=== PATIENT | female | born 1995 | race Two or more races ===

== ENCOUNTER 2016-12-06 15:03 | Inpatient (IN) | payer OTHER ==
[~2016-12-06] VITALS: Ht 171.4 cm; Wt 75.5 kg
[~2016-12-06 15:03] MED LIST: AMOX1TAB64 PO; PREN1TAB56 PO
[2016-12-06 15:39] LABS: ASPARTATE AMINO TRANSFERASE 18 U/L (15-37); BLOOD UREA NITROGEN 11 mg/dL (7-18)
[2016-12-06 16:34] LABS: DIFF TOTAL CELLS COUNTED 100 CELL DIFF; HEMATOCRIT 27.3 % (34.6-47.8); WHITE BLOOD COUNT 9.8 x10^3/uL (3.4-10)
[2016-12-06 16:36] LABS: VERIFY COUNTS? YES
[2016-12-06 16:37] LABS: ANISOCYTOSIS 2+; HYPOCHROMIA 2+; MICROCYTOSIS 2+; OVALOCYTES 1+; POLYCHROMASIA 1+
[2016-12-06] MEDS ORDERED: BETAMETHASONE 6 MG/ML, 5ML IM ONE (18:15)
[2016-12-06] MEDS ORDERED: SODIUM CHLORIDE FLUSH 10ML SYR IVF PRN (18:30)
[2016-12-06] MEDS: BETAMETHASONE 6 MG/ML, 5ML IM SCH (18:30)
[2016-12-06] MEDS ORDERED: LABETALOL 100 MG TABLET ONE (23:06)
[2016-12-07 05:40] LABS: HEMATOCRIT 26.6 % (34.6-47.8); WHITE BLOOD COUNT 10.4 x10^3/uL (3.4-10)
[2016-12-07 05:47] LABS: BLOOD UREA NITROGEN 12 mg/dL (7-18)
[2016-12-07] MEDS ORDERED: LABETALOL 100 MG TABLET PO SCH (06:00)
[2016-12-07 06:12] LABS: ASPARTATE AMINO TRANSFERASE 18 U/L (15-37); TOTAL IRON BINDING CAPACITY 454 mcg/dL (250-450)
[2016-12-07 06:17] LABS: DIFF TOTAL CELLS COUNTED 100 CELL DIFF
[2016-12-07 06:19] LABS: VERIFY COUNTS? YES
[2016-12-07 06:20] LABS: ANISOCYTOSIS 2+; HYPOCHROMIA 1+; MICROCYTOSIS 2+; POLYCHROMASIA 1+
[2016-12-07 06:21] LABS: OVALOCYTES 1+
[2016-12-07 06:22] LABS: LARGE PLATELETS 1+
[2016-12-07] MEDS ORDERED: LABETALOL 100 MG TABLET ONE ×2 (08:54→20:22)
[2016-12-07] MEDS: LABETALOL 100 MG TABLET PO SCH ×2 (09:00→20:25)
[2016-12-07] MEDS: SODIUM CHLORIDE FLUSH 10ML SYR IVF SCH ×2 (09:01→18:00)
[2016-12-07] MEDS: BETAMETHASONE 6 MG/ML, 5ML IM SCH (18:22)
[2016-12-08] MEDS ORDERED: LABETALOL 100 MG TABLET ONE ×2 (09:26→20:55)
[2016-12-08] MEDS ORDERED: PRENATAL VIT/IRON/FA 1 EACH TABLET ONE (09:26)
[2016-12-08] MEDS: PRENATAL VIT/IRON/FA 1 EACH TABLET PO SCH (09:29)
[2016-12-08] MEDS: LABETALOL 100 MG TABLET PO SCH ×2 (09:29→20:58)
[2016-12-08] MEDS ORDERED: FERROUS GLUCONATE 324 MG TABLET PO SCH (17:00)
[2016-12-08] MEDS ORDERED: DOCUSATE 100 MG CAPSULE ONE (18:37)
[2016-12-08] MEDS: DOCUSATE 100 MG CAPSULE PO PRN (18:40)
[2016-12-08] MEDS ORDERED: EPINEPHRINE 1 MG/ML, 1ML SQ PRN (20:00)
[2016-12-08] MEDS ORDERED: IRON DEXTRAN COMPLEX 25 MG in SODIUM CHLORIDE 0.9% 50 ML IV ONE (20:00)
[2016-12-08] MEDS ORDERED: IRON DEXTRAN IV PER PHARMACY IV SCH (20:00)
[2016-12-08] MEDS ORDERED: IRON SUCROSE COMPLEX 100MG/5ML IV SCH (21:00)
[2016-12-08] MEDS: SODIUM CHLORIDE FLUSH 10ML SYR IVF SCH (21:00)
[2016-12-09 08:00] VITALS: BP 166/85
[2016-12-09] MEDS: IRON SUCROSE COMPLEX 100MG/5ML IV SCH (08:05)
[2016-12-09] MEDS: SODIUM CHLORIDE FLUSH 10ML SYR IVF SCH ×2 (08:05→08:06)
[2016-12-09] MEDS ORDERED: LABETALOL 100 MG TABLET ONE ×2 (08:46→20:03)
[2016-12-09] MEDS ORDERED: PRENATAL VIT/IRON/FA 1 EACH TABLET ONE (08:46)
[2016-12-09] MEDS ORDERED: DOCUSATE 100 MG CAPSULE ONE (08:47)
[2016-12-09] MEDS: LABETALOL 100 MG TABLET PO SCH (08:48)
[2016-12-09] MEDS: PRENATAL VIT/IRON/FA 1 EACH TABLET PO SCH (08:48)
[2016-12-09] MEDS: DOCUSATE 100 MG CAPSULE PO PRN (08:49)
[2016-12-09] MEDS ORDERED: IRON DEXTRAN COMPLEX 25 MG in SODIUM CHLORIDE 0.9% 50 ML IV ONE (09:00)
[2016-12-09] MEDS ORDERED: IRON DEXTRAN COMPLEX 1,700 MG in SODIUM CHLORIDE 0.9% 250 ML IV ONE (10:00)
[2016-12-09 10:07] LABS: DILUTE PROTHROMBIN TIME (DPT) 36.3 sec (0.0-55.0); DILUTE RUSSELL'S VIPER VENOM 32.2 sec (0.0-47.0); LUPUS REFLEX INTERPRETATION Comment: (.); PTT-LA 34.4 sec (0.0-51.9)
[2016-12-09 11:38] LABS: HGB A 98.2 % (94.0-98.0); HGB A2 1.8 % (0.7-3.1)
[2016-12-09 12:07] LABS: BETA-2 GLYCOPROTEIN I IGA <9 (0-25)
[2016-12-09 19:56] VITALS: BP 165/92
[2016-12-09] MEDS ORDERED: LABETALOL 100 MG TABLET PO SCH (21:00)
[2016-12-09 23:39] VITALS: BP 118/72
[2016-12-10] MEDS ORDERED: LABETALOL 100 MG TABLET ONE ×3 (04:14→20:17)
[2016-12-10] MEDS: SODIUM CHLORIDE FLUSH 10ML SYR IVF SCH ×2 (04:20→09:00)
[2016-12-10] MEDS: LABETALOL 100 MG TABLET PO SCH ×3 (04:20→20:21)
[2016-12-10 05:03] VITALS: BP 118/75
[2016-12-10] MEDS ORDERED: LABETALOL 100 MG TABLET PO SCH (06:00)
[2016-12-10 06:51] LABS: BLOOD UREA NITROGEN 11 mg/dL (7-18)
[2016-12-10 06:52] LABS: HEMATOCRIT 26.1 % (34.6-47.8); HEMOGLOBIN 7.7 g/dL (11.7-16.4); WHITE BLOOD COUNT 13.7 x10^3/uL (3.4-10)
[2016-12-10 06:55] LABS: ASPARTATE AMINO TRANSFERASE 19 U/L (15-37)
[2016-12-10 07:28] LABS: ANISOCYTOSIS 1+; HYPOCHROMIA 1+; MICROCYTOSIS 3+; OVALOCYTES 1+; POIKILOCYTOSIS 1+
[2016-12-10 08:00] VITALS: BP 141/88
[2016-12-10] MEDS: PRENATAL VIT/IRON/FA 1 EACH TABLET PO SCH (09:00)
[2016-12-10 20:21] VITALS: BP 138/84
[2016-12-11] VITALS: BP 133/77
[2016-12-11] MEDS ORDERED: LABETALOL 100 MG TABLET ONE ×3 (04:09→20:28)
[2016-12-11] MEDS: LABETALOL 100 MG TABLET PO SCH ×3 (04:11→20:30)
[2016-12-11 04:14] VITALS: BP 145/94
[2016-12-11] MEDS: SODIUM CHLORIDE FLUSH 10ML SYR IVF SCH ×3 (04:14→20:31)
[2016-12-11] MEDS: PRENATAL VIT/IRON/FA 1 EACH TABLET PO SCH (09:00)
[2016-12-11 09:30] VITALS: BP 120/79
[2016-12-11 17:05] VITALS: BP 158/94
[2016-12-11 19:15] VITALS: BP 136/80
[2016-12-12] MEDS ORDERED: LABETALOL 100 MG TABLET ONE ×3 (04:48→20:18)
[2016-12-12] MEDS: LABETALOL 100 MG TABLET PO SCH ×3 (04:50→20:39)
[2016-12-12 05:57] LABS: BLOOD UREA NITROGEN 9 mg/dL (7-18)
[2016-12-12 06:10] LABS: HEMATOCRIT 26.1 % (34.6-47.8); HEMOGLOBIN 7.8 g/dL (11.7-16.4); WHITE BLOOD COUNT 11.7 x10^3/uL (3.4-10)
[2016-12-12 06:18] LABS: ASPARTATE AMINO TRANSFERASE 23 U/L (15-37)
[2016-12-12 07:19] LABS: ANISOCYTOSIS 2+; MICROCYTOSIS 2+
[2016-12-12 07:20] LABS: HYPOCHROMIA 1+; OVALOCYTES 1+; POIKILOCYTOSIS 1+; POLYCHROMASIA 1+
[2016-12-12] MEDS: IRON SUCROSE COMPLEX 100MG/5ML IV SCH (08:14)
[2016-12-12] MEDS: PRENATAL VIT/IRON/FA 1 EACH TABLET PO SCH (08:45)
[2016-12-12] MEDS: SODIUM CHLORIDE FLUSH 10ML SYR IVF SCH (08:45)
[2016-12-12 08:50] VITALS: BP 159/101
[2016-12-12 09:53] VITALS: BP 144/90
[2016-12-12] MEDS ORDERED: LABETALOL 200 MG TABLET ONE (11:56)
[2016-12-12 13:00] VITALS: BP 143/97
[2016-12-12 17:37] VITALS: BP 139/85
[2016-12-12] MEDS ORDERED: DOCUSATE 100 MG CAPSULE ONE (20:19)
[2016-12-12 20:30] VITALS: BP 139/93
[2016-12-13] MEDS ORDERED: LABETALOL 100 MG TABLET ONE ×3 (04:17→20:25)
[2016-12-13] MEDS: LABETALOL 100 MG TABLET PO SCH ×3 (04:30→20:30)
[2016-12-13 06:09] LABS: HEMATOCRIT 27.3 % (34.6-47.8); HEMOGLOBIN 8.4 g/dL (11.7-16.4); WHITE BLOOD COUNT 12.7 x10^3/uL (3.4-10)
[2016-12-13 06:40] LABS: ASPARTATE AMINO TRANSFERASE 23 U/L (15-37); BLOOD UREA NITROGEN 6 mg/dL (7-18); DIFF TOTAL CELLS COUNTED 100 CELL DIFF
[2016-12-13 06:42] LABS: ANISOCYTOSIS 2+; VERIFY COUNTS? YES
[2016-12-13 06:43] LABS: HYPOCHROMIA 1+; MICROCYTOSIS 2+; OVALOCYTES 1+; POIKILOCYTOSIS 1+; POLYCHROMASIA 1+
[2016-12-13] MEDS: SODIUM CHLORIDE FLUSH 10ML SYR IVF SCH ×2 (07:30→20:31)
[2016-12-13] MEDS: PRENATAL VIT/IRON/FA 1 EACH TABLET PO SCH (11:00)
[2016-12-13 13:54] LABS: OCCBLD OBC PASS
[2016-12-14] MEDS ORDERED: LABETALOL 100 MG TABLET ONE ×3 (04:09→19:53)
[2016-12-14] MEDS: LABETALOL 100 MG TABLET PO SCH ×3 (04:10→19:56)
[2016-12-14 04:45] LABS: HEMATOCRIT 28.1 % (34.6-47.8); HEMOGLOBIN 8.4 g/dL (11.7-16.4); WHITE BLOOD COUNT 12.5 x10^3/uL (3.4-10)
[2016-12-14 04:46] LABS: ASPARTATE AMINO TRANSFERASE 30 U/L (15-37); BLOOD UREA NITROGEN 6 mg/dL (7-18)
[2016-12-14 08:30] VITALS: BP 139/93
[2016-12-14] MEDS: SODIUM CHLORIDE FLUSH 10ML SYR IVF SCH (22:00)
[2016-12-15] MEDS ORDERED: LABETALOL 100 MG TABLET ONE ×3 (03:49→20:41)
[2016-12-15] MEDS: LABETALOL 100 MG TABLET PO SCH ×3 (03:56→20:43)
[2016-12-15 06:04] LABS: HEMATOCRIT 29.4 % (34.6-47.8); WHITE BLOOD COUNT 11.9 x10^3/uL (3.4-10)
[2016-12-15 06:20] LABS: ASPARTATE AMINO TRANSFERASE 29 U/L (15-37); BLOOD UREA NITROGEN 6 mg/dL (7-18)
[2016-12-15] MEDS: SODIUM CHLORIDE FLUSH 10ML SYR IVF SCH ×3 (09:00→21:00)
[2016-12-15] MEDS ORDERED: DOCUSATE 100 MG CAPSULE ONE (09:30)
[2016-12-15] MEDS ORDERED: PRENATAL VIT/IRON/FA 1 EACH TABLET ONE (09:30)
[2016-12-15] MEDS: IRON SUCROSE COMPLEX 100MG/5ML IV SCH (09:33)
[2016-12-15] MEDS: DOCUSATE 100 MG CAPSULE PO PRN (09:33)
[2016-12-15] MEDS: PRENATAL VIT/IRON/FA 1 EACH TABLET PO SCH (09:41)
[2016-12-15 13:00] VITALS: BP 138/83
[2016-12-15 19:20] VITALS: BP 130/89
[2016-12-15] MEDS ORDERED: LABETALOL 200 MG TABLET ONE (20:42)
[2016-12-16] MEDS ORDERED: LABETALOL 200 MG TABLET ONE ×2 (04:22→19:40)
[2016-12-16] MEDS ORDERED: LABETALOL 100 MG TABLET ONE ×4 (04:22→19:40)
[2016-12-16] MEDS: LABETALOL 100 MG TABLET PO SCH ×3 (04:29→19:57)
[2016-12-16 04:39] VITALS: BP 133/83
[2016-12-16 07:10] VITALS: BP 141/89
[2016-12-16] MEDS ORDERED: PRENATAL VIT/IRON/FA 1 EACH TABLET ONE (08:50)
[2016-12-16] MEDS: PRENATAL VIT/IRON/FA 1 EACH TABLET PO SCH ×2 (08:51→09:00)
[2016-12-16] MEDS: SODIUM CHLORIDE FLUSH 10ML SYR IVF SCH ×3 (09:00→21:07)
[2016-12-16] MEDS ORDERED: DOCUSATE 100 MG CAPSULE ONE (21:05)
[2016-12-16] MEDS: DOCUSATE 100 MG CAPSULE PO PRN (21:07)
[2016-12-17] MEDS ORDERED: LABETALOL 200 MG TABLET ONE ×2 (03:44→21:07)
[2016-12-17] MEDS ORDERED: LABETALOL 100 MG TABLET ONE ×3 (03:44→21:07)
[2016-12-17] MEDS: LABETALOL 100 MG TABLET PO SCH ×3 (03:49→21:09)
[2016-12-17 08:03] VITALS: BP 141/93
[2016-12-17] MEDS: SODIUM CHLORIDE FLUSH 10ML SYR IVF SCH (09:00)
[2016-12-17 20:21] VITALS: BP 134/88
[2016-12-17] MEDS: DOCUSATE 100 MG CAPSULE PO PRN (22:30)
[2016-12-18] MEDS ORDERED: LABETALOL 100 MG TABLET ONE ×3 (04:05→20:32)
[2016-12-18] MEDS ORDERED: LABETALOL 200 MG TABLET ONE ×2 (04:06→12:46)
[2016-12-18] MEDS: LABETALOL 100 MG TABLET PO SCH ×3 (04:40→20:44)
[2016-12-18] MEDS: SODIUM CHLORIDE FLUSH 10ML SYR IVF SCH ×2 (04:43→09:00)
[2016-12-18] MEDS ORDERED: LACTATED RINGERS 500 ML IVBOLUS ONE (06:00)
[2016-12-18] MEDS ORDERED: LACTATED RINGERS 1,000 ML IV SCH (06:30)
[2016-12-18 06:57] LABS: ASPARTATE AMINO TRANSFERASE 22 U/L (15-37); BLOOD UREA NITROGEN 6 mg/dL (7-18); HEMATOCRIT 32.2 % (34.6-47.8); HEMOGLOBIN 9.9 g/dL (11.7-16.4)
[2016-12-18] MEDS ORDERED: MAGNESIUM SULF. PMX 20GM/500ML 500 ML IV ONE ×2 (07:11→17:49)
[2016-12-18] MEDS ORDERED: MAGNESIUM SULFATE PMX 4GM/100M 100 ML ONE (07:11)
[2016-12-18 07:25] LABS: DIFF TOTAL CELLS COUNTED 100 CELL DIFF
[2016-12-18 07:30] VITALS: BP 135/89
[2016-12-18] MEDS ORDERED: MAGNESIUM SULFATE PMX 4GM/100M 100 ML IVPB ONE (07:30)
[2016-12-18] MEDS ORDERED: MAGNESIUM SULFATE PMX 4GM/100M 100 ML IV ONE (07:30)
[2016-12-18] MEDS ORDERED: MAGNESIUM SULF. PMX 20GM/500ML 500 ML IV PRN (07:30)
[2016-12-18] MEDS: MAGNESIUM SULF. PMX 20GM/500ML 500 ML IV SCH ×2 (07:47→17:57)
[2016-12-18 08:04] LABS: MICROCYTOSIS 1+; POLYCHROMASIA 1+; VERIFY COUNTS? YES
[2016-12-18 08:07] LABS: OVALOCYTES 1+
[2016-12-18 08:10] LABS: ANISOCYTOSIS 2+
[2016-12-18] MEDS ORDERED: METRONIDAZOLE PMX 500MG/100ML 100 ML IV SCH (09:00)
[2016-12-18] MEDS: IRON SUCROSE COMPLEX 100MG/5ML IV SCH (09:05)
[2016-12-18] MEDS: metroNIDAZOLE 500 MG TABLET PO SCH ×2 (10:23→21:29)
[2016-12-18 13:20] LABS: AMNI OBC PASS; AMNISURE NEGATIVE (NEGATIVE)
[2016-12-19] MEDS ORDERED: LABETALOL 100 MG TABLET ONE ×3 (04:07→20:03)
[2016-12-19] MEDS: LABETALOL 100 MG TABLET PO SCH ×3 (04:40→20:21)
[2016-12-19] MEDS: PRENATAL VIT/IRON/FA 1 EACH TABLET HOMEMEDPO SCH (09:00)
[2016-12-19] MEDS: SODIUM CHLORIDE FLUSH 10ML SYR IVF SCH ×2 (09:00→20:21)
[2016-12-19] MEDS: metroNIDAZOLE 500 MG TABLET PO SCH ×2 (09:33→20:21)
[2016-12-19 09:38] VITALS: BP 123/77
[2016-12-19 12:58] VITALS: BP 129/81
[2016-12-19 20:20] VITALS: BP 130/83
[2016-12-20] MEDS ORDERED: LABETALOL 100 MG TABLET ONE ×4 (04:19→20:35)
[2016-12-20] MEDS: LABETALOL 100 MG TABLET PO SCH ×3 (04:20→20:35)
[2016-12-20] MEDS: PRENATAL VIT/IRON/FA 1 EACH TABLET HOMEMEDPO SCH (09:00)
[2016-12-20] MEDS: metroNIDAZOLE 500 MG TABLET PO SCH ×2 (09:50→20:33)
[2016-12-20 09:52] VITALS: BP 130/85
[2016-12-20] MEDS: SODIUM CHLORIDE FLUSH 10ML SYR IVF SCH (20:30)
[2016-12-21] MEDS ORDERED: LABETALOL 100 MG TABLET ONE ×3 (03:49→21:43)
[2016-12-21] MEDS: LABETALOL 100 MG TABLET PO SCH ×3 (03:57→21:46)
[2016-12-21] MEDS: IRON SUCROSE COMPLEX 100MG/5ML IV SCH (07:55)
[2016-12-21] MEDS: SODIUM CHLORIDE FLUSH 10ML SYR IVF SCH (07:59)
[2016-12-21] MEDS: metroNIDAZOLE 500 MG TABLET PO SCH ×2 (08:50→21:45)
[2016-12-21] MEDS: PRENATAL VIT/IRON/FA 1 EACH TABLET HOMEMEDPO SCH (09:00)
[2016-12-21] MEDS ORDERED: LABETALOL 200 MG TABLET ONE (21:44)
[2016-12-22] MEDS ORDERED: LABETALOL 100 MG TABLET ONE ×3 (04:13→20:18)
[2016-12-22] MEDS: LABETALOL 100 MG TABLET PO SCH ×3 (04:37→20:22)
[2016-12-22] MEDS: PRENATAL VIT/IRON/FA 1 EACH TABLET HOMEMEDPO SCH (09:00)
[2016-12-22] MEDS: metroNIDAZOLE 500 MG TABLET PO SCH ×2 (09:21→20:22)
[2016-12-22] MEDS ORDERED: LABETALOL 200 MG TABLET ONE (12:27)
[2016-12-22 21:05] VITALS: BP 137/82
[2016-12-23] MEDS ORDERED: LABETALOL 100 MG TABLET ONE ×3 (04:23→20:34)
[2016-12-23] MEDS: LABETALOL 100 MG TABLET PO SCH ×3 (04:24→20:43)
[2016-12-23] MEDS: PRENATAL VIT/IRON/FA 1 EACH TABLET HOMEMEDPO SCH ×2 (09:00→09:29)
[2016-12-23] MEDS: metroNIDAZOLE 500 MG TABLET PO SCH ×2 (09:30→21:33)
[2016-12-23 09:40] VITALS: BP 116/64
[2016-12-24] MEDS ORDERED: LABETALOL 100 MG TABLET ONE ×3 (04:36→20:56)
[2016-12-24] MEDS: LABETALOL 100 MG TABLET PO SCH ×3 (04:38→21:00)
[2016-12-24 08:10] VITALS: BP 127/78
[2016-12-24] MEDS: PRENATAL VIT/IRON/FA 1 EACH TABLET HOMEMEDPO SCH (09:00)
[2016-12-24] MEDS: metroNIDAZOLE 500 MG TABLET PO SCH ×2 (09:00→21:00)
[2016-12-24 14:52] LABS: BLOOD UREA NITROGEN 9 mg/dL (7-18)
[2016-12-24 14:55] LABS: ASPARTATE AMINO TRANSFERASE 31 U/L (15-37)
[2016-12-24 15:07] LABS: HEMATOCRIT 37.2 % (34.6-47.8); HEMOGLOBIN 11.6 g/dL (11.7-16.4); WHITE BLOOD COUNT 8.7 x10^3/uL (3.4-10)
[2016-12-24 15:10] LABS: ANISOCYTOSIS 2+; HYPOCHROMIA 1+; OVALOCYTES 1+; POLYCHROMASIA 1+
[2016-12-25] MEDS ORDERED: LABETALOL 100 MG TABLET ONE ×2 (04:54→12:48)
[2016-12-25] MEDS: LABETALOL 100 MG TABLET PO SCH ×2 (04:57→12:49)
[2016-12-25] MEDS: PRENATAL VIT/IRON/FA 1 EACH TABLET HOMEMEDPO SCH (09:00)
[2016-12-25] MEDS ORDERED: LABE300T PO (17:10)
== END 2016-12-25 17:29 | disposition home or self-care (01) | DRG 781 ==
LOC: LDOP 15:03 → LDIP 17:50
PROVIDERS: ADMIT Obstetrics & Gynecology Maternal & Fetal Medicine; ATTEND Obstetrics & Gynecology Maternal & Fetal Medicine
PROC: 0T9B70Z Drainage of Bladder with Drainage Device, Via Natural or Artificial Opening (ICD-10-PCS; principal; 2016-12-06)
DX: O14.92 Unspecified pre-eclampsia, second trimester (principal); A53.0 Latent syphilis, unspecified as early or late; O98.112 Syphilis complicating pregnancy, second trimester; O99.112 Other diseases of the blood and blood-forming organs and certain disorders involving the immune mechanism complicating pregnancy, second trimester; O36.5920 Maternal care for other known or suspected poor fetal growth, second trimester, not applicable or unspecified; O99.012 Anemia complicating pregnancy, second trimester; Z3A.27 27 weeks gestation of pregnancy; D75.89 Other specified diseases of blood and blood-forming organs; D64.9 Anemia, unspecified
CPT/HCPCS: 36415; 71020; 76770; 76815; 76819; 80053; 81001; 81050; 82248; 82272; 82570; 82607; 82731; 82746; 83021; 83540; 83550; 83735; 84112; 84156; 84443; 84550; 85025; 85045; 85613; 85660; 85670; 85705; 85732; 86038; 86146; 86147; 86850; 86900; 87081; 87147; 87210; 87808; 89060; J0702; J1756; J7120; J3475; Q0114

== ENCOUNTER 2016-12-30 10:37 | Outpatient (CLI) | payer OTHER ==
[~2016-12-30] VITALS: Ht 170.2 cm; Wt 77.3 kg
[~2016-12-30 10:37] MED LIST changes: +LABE300T PO
[2016-12-30] MEDS ORDERED: PLEASE ENTER HEIGHT AND WEIGHT MC SCH (11:00)
[2016-12-30] MEDS ORDERED: LABETALOL 300 MG TABLET PO SCH (12:00)
[2016-12-30] MEDS ORDERED: LABETALOL 100 MG TABLET ONE (12:03)
== END 2016-12-30 14:08 | disposition home or self-care (01) ==
LOC: LDOP 10:37
PROVIDERS: ATTEND Obstetrics & Gynecology Maternal & Fetal Medicine
DX: O13.3 Gestational [pregnancy-induced] hypertension without significant proteinuria, third trimester (principal); Z3A.30 30 weeks gestation of pregnancy
CPT/HCPCS: 59025; 99211; G0463